=== PATIENT | male | born 1965 | race Caucasian/White ===

== ENCOUNTER 2016-08-07 16:13 | Emergency (ER) | payer OTHER ==
[2016-08-07] MEDS ORDERED: OPTIRAY 350 100 ML VIAL HMH IV ONE (16:14)
[2016-08-07] MEDS ORDERED: SODIUM CHLORIDE 0.9% 1,000 ML ONE (18:22)
[2016-08-07] MEDS ORDERED: ONDANSETRON 4 MG VIAL ONE ×2 (18:30→19:04)
[2016-08-07] MEDS ORDERED: DILAUDID 1 MG/ML AMP ONE ×2 (19:04→22:00)
== END 2016-08-07 22:15 | disposition home or self-care (01) ==
LOC: ER 16:13
DX: K29.00 Acute gastritis without bleeding (principal)
CPT/HCPCS: 74177; 81003; 93005; 96361; 96374; 96375; 96376

== ENCOUNTER 2016-08-17 06:42 | Observation (INO) | payer OTHER ==
[2016-08-14 15:31] VITALS: BP_SYST 124; RESP 16; TEMP 97.9
[2016-08-14 15:32] VITALS: BMI 34.7
[~2016-08-17] VITALS: Ht 182.9 cm; Wt 116.1 kg
[2016-08-17] VITALS (29 sets, daily range): BP systolic 113–140; RESP 9–20; TEMP 97.2–98.2; Ht 182.9 cm; Wt 116.1 kg
[~2016-08-17 06:42] MED LIST: CEFAZOLIN 1,000 MG in DEXTROSE 5% 50 ML IV ONE
[2016-08-17] MEDS ORDERED: LIDOCAINE 1% BUFFERED 1 ML SYR INTRADERM PRN (07:15)
[2016-08-17] MEDS ORDERED: MIDAZOLAM 2 MG/2 ML INJ IV ONE (07:15)
[2016-08-17] MEDS ORDERED: LACT RINGERS 1,000 ML IV SCH (07:15)
[2016-08-17] MEDS ORDERED: GLYCOPYRROLATE 0.2 MG/ML VIAL IV ONE (07:15)
[2016-08-17] MEDS ORDERED: MORPHINE 4 MG/ML SYR IV PRN (07:20)
[2016-08-17] MEDS ORDERED: ONDANSETRON 4 MG VIAL IV PRN ×2 (07:20→10:00)
[2016-08-17] MEDS ORDERED: OXYCODONE 5 MG TAB PO PRN (07:20)
[2016-08-17] MEDS ORDERED: MEPERIDINE 25 MG/ML IV PRN (07:20)
[2016-08-17] MEDS ORDERED: MORPHINE 2 MG/ML SYR IV PRN (07:20)
[2016-08-17] MEDS ORDERED: DILAUDID 1 MG/ML AMP IV PRN (07:20)
[2016-08-17] MEDS ORDERED: LABETALOL 100 MG/20 ML VIAL IV PRN (09:30)
[2016-08-17] MEDS ORDERED: PROMETHAZINE 25 MG/ML VIAL IV PRN (10:00)
[2016-08-17] MEDS: MORPHINE 2 MG/ML SYR IV PRN ×2 (11:43→14:33)
[2016-08-17] MEDS: FAMOTIDINE 20 MG INJ IV SCH ×2 (11:43→20:55)
[2016-08-17] MEDS ORDERED: LABETALOL 100 MG/20 ML VIAL IV PUSH ONE (14:16)
[2016-08-17] MEDS ORDERED: ESMOLOL 100 MG/10 ML VL IV ONE (14:16)
[2016-08-17] MEDS ORDERED: FENTANYL 100 MCG/2 ML AMP IV ONE (14:16)
[2016-08-17] MEDS ORDERED: METOPROLOL 5 MG/5 ML VIAL IV ONE (14:16)
[2016-08-17] MEDS ORDERED: ONDANSETRON 4 MG VIAL IV PUSH ONE (14:16)
[2016-08-17] MEDS ORDERED: DILAUDID 1 MG/ML AMP IV ONE (14:16)
[2016-08-17] MEDS ORDERED: DEXAMETHASONE 4 MG/ML VIAL IV ONE (14:16)
[2016-08-17] MEDS ORDERED: PROPOFOL 20 ML PER ML IV ONE (14:16)
[2016-08-17] MEDS ORDERED: LIDOCAINE 2% SYR 5 ML IV ONE (14:16)
[2016-08-17] MEDS ORDERED: LIDOCAINE 2% JELLY 30 ML TOPICAL ONE (14:16)
[2016-08-17] MEDS: CEFAZOLIN 2,000 MG in SODIUM CHLORIDE 0.9% 100 ML IV SCH (16:27)
[2016-08-17] MEDS: LACT RINGERS 1,000 ML IV SCH (16:27)
[2016-08-17] MEDS: MORPHINE 4 MG/ML SYR IV PRN ×4 (16:35→23:18)
[2016-08-18] MEDS: CEFAZOLIN 2,000 MG in SODIUM CHLORIDE 0.9% 100 ML IV SCH ×2 (00:04→08:17)
[2016-08-18] MEDS: MORPHINE 4 MG/ML SYR IV PRN ×4 (01:45→12:51)
[2016-08-18 05:07] VITALS: BP_SYST 139; RESP 20; TEMP 98.1
[2016-08-18 07:09] VITALS: BP_SYST 131; RESP 16; TEMP 97.4
[2016-08-18] MEDS: FAMOTIDINE 20 MG INJ IV SCH ×2 (08:17→19:47)
[2016-08-18 10:57] VITALS: BP_SYST 166; RESP 16; TEMP 97.4
[2016-08-18 15:05] VITALS: BP_SYST 151; RESP 18; TEMP 97.7
[2016-08-18] MEDS: MORPHINE 2 MG/ML SYR IV PRN ×5 (15:19→23:50)
[2016-08-18] MEDS: CEFAZOLIN 1,000 MG in DEXTROSE 5% 50 ML IV SCH ×2 (15:19→23:16)
[2016-08-18 20:08] VITALS: BP_SYST 147; RESP 18; TEMP 97.9
[2016-08-18] MEDS: LACT RINGERS 1,000 ML IV SCH (21:52)
[2016-08-18 23:38] VITALS: BP_SYST 124; RESP 18; TEMP 97.8
[2016-08-19 03:14] VITALS: BP_SYST 120; RESP 18; TEMP 97.9
[2016-08-19 07:30] VITALS: BP_SYST 123; RESP 16; TEMP 98.4
[2016-08-19] MEDS: FAMOTIDINE 20 MG INJ IV SCH (07:44)
[2016-08-19] MEDS: CEFAZOLIN 1,000 MG in DEXTROSE 5% 50 ML IV SCH (07:44)
[2016-08-19 08:54] VITALS: BP_SYST 123; RESP 16; TEMP 98.4
== END 2016-08-19 08:43 | disposition home or self-care (01) ==
LOC: ENRESERVDT → ENRESERVTM → SURG 06:42 → SDS 09:58 → 5THW 11:21
PROVIDERS: ADMIT Surgery; ATTEND Surgery
DX: K43.6 Other and unspecified ventral hernia with obstruction, without gangrene (principal); F17.210 Nicotine dependence, cigarettes, uncomplicated; Z80.0 Family history of malignant neoplasm of digestive organs
CPT/HCPCS: 85025; 88302; 94799